=== PATIENT | male | born 1990 | race African-American/Black ===

== ENCOUNTER 2016-06-17 05:38 | Emergency (ER) | payer SELFPAY ==
[~2016-06-17] VITALS: Ht 180.3 cm; Wt 68.0 kg
[2016-06-17 06:33] LABS: GLUCOSE URINE NEGATIVE (NEGATIVE); KETONES URINE NEGATIVE (NEGATIVE); LEUKOCYTE ESTERASE URINE 1+ (NEGATIVE); NITRITE URINE NEGATIVE (NEGATIVE); OCCULT BLOOD URINE 3+ (NEGATIVE); PROTEIN URINE 2+ (NEGATIVE); SPECIFIC GRAVITY URINE 1.019 (1.005-1.030); UROBILINOGEN URINE 0.2 E.U./dL (0.2-1.0)
[2016-06-17 06:46] LABS: CLARITY URINE CLEAR (CLEAR); COLOR URINE AMBER (YELLOW)
[2016-06-17 07:11] LABS: BACTERIA URINE NONE SEEN; RBC URINE 0-2 /hpf (0-2); SQUAMOUS EPITHELIAL CELL URINE NONE SEEN /lpf (RARE/1+); WBC URINE 0-2 /hpf (0-2)
[2016-06-17 08:15] LABS: CHLORIDE 104 mEq/L (98-107)
[2016-06-17 08:21] LABS: ANION GAP 9; CALCIUM 8.2 mg/dL (8.5-10.1); CARBON DIOXIDE 33 mEq/L (21-32); INDEX HEMOLYSI 1 (1-3); INDEX ICTERIC 1 (1-4); INDEX LIPEMIC 1 (1-3); UREA NITROGEN BLOOD 12 mg/dL (7-21); eGFR > 60 mL/min (>60)
[2016-06-17 08:41] VITALS: BP 121/81
== END 2016-06-17 08:44 | disposition home or self-care (01) ==
LOC: ER 05:52
DX: M62.82 Rhabdomyolysis (principal)
CPT/HCPCS: 36415; 80048; 81001; 99284